=== PATIENT | female | born 1960 | race Caucasian/White ===

== ENCOUNTER 2017-04-24 12:56 | Emergency (ER) | payer MEDICAID ==
--- NOTE | 2017-04-24 13:07 | Emergency Department Record ---
History of Present Illness - General Chief complaint: Extremity Problem Stated complaint: LEGS KEEP GIVING OUT Time Seen by Provider: 04/24/17 13:02 Source: Patient, Family Mode of Arrival: Ambulatory Limitations: No limitations - History of Present Illness Initial comments: 56 yo female presents with left leg spasm that give out intermittently. She reports this problem goes back about 5 years but the last week it is happening with increasing frequency. She has had a history of sciatica in the past. In the past these episodes occur rarely. During the last week the episodes have been occurring more frequently. She has fallen twice. No injury. She is able to ambulate then an episode occurs. She has some chronic lumbar pain. She was seen at the [facility] this week. She was provided a knee immobilzer, cane, and PT referral to help her compensate with her difficulty walking. She continues to be unstable and has fallen. No swelling. No numbness. No incontinence. MD Complaint: Other -: Week(s) (1) Location: Left Radiation: Distal Quality: Aching Consistency: Intermittent Improves with: Rest Worsens with: Walking, Weight bearing Associated Symptoms: Denies other symptoms - Related Data Home Medications Medication Instructions Recorded Confirmed Last Taken Glyburide 1.25 mg PO DAILY 04/24/17 04/24/17 Unknown Insulin Glulisine [Apidra Solostar] 1 unit SQ ASDIR 04/24/17 04/24/17 Unknown Lisinopril 10 mg PO DAILY 04/24/17 04/24/17 Unknown Lovastatin 10 mg PO DAILY 04/24/17 04/24/17 Unknown Metformin HCl 2,500 mg PO DAILY 04/24/17 04/24/17 Unknown Risperidone [Risperdal] 0.5 mg PO QHS 04/24/17 04/24/17 Unknown Trazodone HCl 50 mg PO QHS 04/24/17 04/24/17 Unknown Allergies Allergy/AdvReac Type Severity Reaction Status Date / Time No Known Drug Allergies Allergy Verified 04/24/17 13:07 Review of Systems Constitutional: Reports: Weakness. Denies: Chills, Fever, Malaise Eyes: Denies: Eye discharge, Eye pain, Photophobia, Vision change ENT: Denies: Congestion, Throat pain Respiratory: Denies: Cough Cardiovascular: Denies: Chest pain, Syncope Endocrine: Denies: Fatigue Gastrointestinal: Denies: Abdominal pain, Diarrhea, Nausea, Vomiting Genitourinary: Denies: Dysuria, Incontinence, Retention, Urgency Musculoskeletal: Reports: Arthralgia, Back pain Skin: Denies: Bruising, Change in color, Rash Neurological: Reports: As per HPI, Abnormal gait, Tremors, Weakness. Denies: Confusion, Headache, Numbness, Tingling, Vertigo Psychiatric: Denies: Anxiety Hematological/Lymphatic: Denies: Blood Clots, Easy bleeding, Easy bruising, Swollen glands Physical Exam - General General Appearance: Alert, Oriented x3, Cooperative, No acute distress Limitations: No limitations - Head Head exam: Atraumatic, Normocephalic, Normal inspection - Eye Eye exam: Normal appearance. negative: Conjunctival injection, Scleral icterus - ENT ENT exam: Normal exam, Mucous membranes moist Ear exam: Normal external inspection Nasal Exam: Normal inspection Mouth exam: Normal external inspection - Neck Neck exam: Normal inspection. negative: Tenderness - Respiratory Respiratory exam: Normal lung sounds bilaterally. negative: Respiratory distress - Cardiovascular Cardiovascular Exam: Regular rate, Normal rhythm, Normal heart sounds Peripheral Pulses: 2+: Dorsalis Pedis (L) - GI/Abdominal GI/Abdominal exam: Soft. negative: Distended, Tenderness - Rectal Rectal exam: Deferred - exam: Deferred - Extremities Extremities exam: Normal inspection, Other (The patient able to over come gravity with left for 1-2 seconds, right is normal, ). negative: Calf tenderness, Full ROM, Normal capillary refill, Pedal edema, Tenderness - Back Back exam: Reports: Paraspinal tenderness, Tenderness (low lumbar). Denies: CVA tenderness (R), CVA tenderness (L) - Neurological Neurological exam: Abnormal gait (Ambulated independently with cane and brace), Alert, Oriented X3, Other (foot flexion and extnesion intact, foot sensation intact). negative: Altered, Motor sensory deficit, Reflexes normal (right patellar +2, left +1 patellar) - Psychiatric Psychiatric exam: negative: Agitated, Anxious - Skin Skin exam: Dry, Intact, Normal color, Warm Course - Reevaluation(s) Reevaluation #1: EMR reviewed 01/14/14 Lumbar performed for leg weakness, neuropathy: Degenerative changes noted at the L4-L5, L5-S1. Preserved vertebral heights. 04/24/17 13:04 I Explained to the patient that [facility] does not have MRI or neurology I believe this is most likely a lumbar radiculapathy and not a stroke I recommend evaluation at a hospital with proper resources She recommends [facility] I called the [facility] ED. I SW Dr Moscoso. He agrees with accepting the patient for transfer for evaluation The patient is stable for transfer by private car Disposition Disposition: Transfer Clinical Impression: Tremor, Left leg weakness Disposition: Acute Care Hospital Transfer Transfer To: [facility] Reason For Transfer: Left leg weakness Accepting Physician: Danis Time Discussed w/Accepting Physician: 13:41 Condition: (2) Stable Additional Instructions: Go directly to the [facility] ER for further evaluation. Forms: Patient Portal Access Time of Disposition: 13:29 Quality - Quality Measures Quality Measures: N/A - Blood Pressure Screening Does Patient Have Any of the Following: No Blood Pressure Classification: Hypertensive Reading Systolic Measurement: 148 Diastolic Measurement: 105 Screening for High Blood Pressure: < Pre-Hypertensive BP, F/U Documented > [ G8950] Pre-Hypertensive Follow-up Interventions: Referral to alternative/primary care provider.
== END 2017-04-24 13:45 | disposition short-term general hospital (02) ==
LOC: ER 12:56
DX: R25.1 Tremor, unspecified (principal); R29.898 Other symptoms and signs involving the musculoskeletal system; M54.5 Low back pain; R25.2 Cramp and spasm; R26.2 Difficulty in walking, not elsewhere classified
CPT/HCPCS: 99284

== ENCOUNTER 2017-04-28 17:01 | Observation (INO) | payer MEDICAID ==
[2017-04-28] MEDS ORDERED: SODIUM CHLORIDE 0.9% 500 ML IV ONE (17:19)
[2017-04-28] MEDS ORDERED: ONDANSETRON HCL IV 4 MG/2 ML VIAL IV ONE (17:19)
[2017-04-28] MEDS ORDERED: SUCRALFATE 1 G/10 ML UD PO ONE (17:20)
--- NOTE | 2017-04-28 17:20 | Emergency Department Record ---
History of Present Illness - General Chief Complaint: Abdominal Pain Stated Complaint: VOMITING, RT RIB PAIN AND BACK PAIN Time Seen by Provider: 04/28/17 17:13 Source: Patient Mode of Arrival: Ambulatory Limitations: No limitations - History of Present Illness Initial Comments: The patient is here due to RUQ AP for one day. The pain is a sharp cramping pain associated with nausea and vomiting. She has vomited 6 times in the last 24 hours. Additionally the patient is having R flank pain from the backside that intermittently radiates around to the front over the RUQ area. She states it feels like when she had GB problems but that has been removed. There is no reported lower AP, dysuria, fever, chills, CP, SOB, or ALISON. The patient was seen in the [facility] ER 4 days ago due to back pain and was discharged on oral steroids. MD Complaint: Abdominal pain Onset/Timin -: Days(s) Location: Epigastric, R Flank, RUQ, Other Radiation: R flank, Other Quality: Aching, Sharp Improves With: Nothing Worsens With: Nothing Associated Symptoms: Nausea, Vomiting - Related Data Patient : No Home Medications Medication Instructions Recorded Confirmed Last Taken Aspirin [Adult Low Dose Aspirin EC] 81 mg PO DAILY 04/28/17 04/28/17 04/27/17 Buspirone HCl [Buspar] 10 mg PO TID 04/28/17 04/28/17 04/28/17 Glimepiride [Amaryl] 8 mg PO DAILY 04/28/17 04/28/17 04/27/17 Hydrochlorothiazide 25 mg PO DAILY 04/28/17 04/28/17 04/27/17 Insulin Glargine,Hum.rec.anlog 100 unit SQ 04/28/17 Unknown [Basaglar Kwikpen U-100] Insulin Glulisine [Apidra Solostar] 1 unit SQ ASDIR 04/28/17 04/28/17 Unknown Lisinopril [Zestril] 1 tab PO DAILY 04/28/17 04/28/17 04/27/17 Lovastatin [Altoprev] 40 mg PO DAILY 04/28/17 04/28/17 04/27/17 Metformin HCl [Glucophage] 1,000 mg PO DAILY 04/28/17 04/28/17 04/27/17 Methocarbamol [Robaxin] 500 mg PO ASDIR 04/28/17 04/28/17 Unknown Metoprolol Tartrate [Lopressor] 50 mg PO BID 04/28/17 04/28/17 04/27/17 Naproxen [Naprosyn] 500 mg PO ASDIR 04/28/17 04/28/17 Unknown Nicotine 14Mg/24 Hour Patch 1 patch TD DAILY 04/28/17 04/28/17 Unknown [Nicotine 14Mg] Omeprazole [Prilosec] 20 mg PO DAILY 04/28/17 04/28/17 04/27/17 Prednisone [Prednisone 20Mg] 20 mg PO DAILY 04/28/17 04/28/17 04/27/17 Pregabalin [Lyrica] 200 mg PO ASDIR 04/28/17 04/28/17 04/27/17 Risperidone [Risperdal] 0.5 mg PO DAILY 04/28/17 04/28/17 04/27/17 Sertraline HCl [Zoloft] 50 mg PO DAILY 04/28/17 04/28/17 04/27/17 Sumatriptan Succinate [Imitrex] 100 mg PO ASDIR 04/28/17 04/28/17 04/28/17 Trazodone HCl [Desyrel] 50 mg PO QHS 04/28/17 04/28/17 04/27/17 Allergies Allergy/AdvReac Type Severity Reaction Status Date / Time No Known Drug Allergies Allergy Verified 04/28/17 17:14 Travel Screening - Travel/Exposure Within Last 30 Days Have you traveled within the last 30 days?: No - Travel/Exposure Within Last Year Have you traveled outside the [place] in the last year?: No - Additonal Travel Details Have you been exposed to anyone with a communicable illness?: No - Travel Symptoms Symptom Screening: None Review of Systems Constitutional: Denies: Chills, Fever Eyes: Denies: Eye discharge ENT: Denies: Congestion Respiratory: Denies: Cough, Dyspnea Past Medical History - SOCIAL HISTORY Smoking Status: Current every day smoker Alcohol Use: None Drug Use: Occasional Drug Use Detail:: Marijuana - RESPIRATORY Hx Respiratory Disorders: No - CARDIOVASCULAR Hx Cardio Disorders: Yes Hx Hypertension: Yes Comment:: high cholesterol - NEURO Hx Neuro Disorders: No - GI Hx GI Disorders: No - Hx Genitourinary Disorders: No - ENDOCRINE Hx Endocrine Disorders: Yes Hx Diabetes: Yes - MUSCULOSKELETAL Hx Musculoskeletal Disorders: No - PSYCH Hx Psych Problems: No - HEMATOLOGY/ONCOLOGY Hx Hematology/Oncology Disorders: No Family Medical History Any Significant Family History?: Yes Family Hx Comment (NOT TO BE USED IN PLACE OF ITEMS BELOW): grandpa-parkinsons Physical Exam - General General Appearance: Alert, Oriented x3, Cooperative, No acute distress - Head Head exam: Atraumatic, Normocephalic, Normal inspection - Eye Eye exam: Normal appearance, PERRL - ENT Throat exam: Normal inspection. negative: Tonsillar erythema, Tonsillar exudate - Neck Neck exam: Normal inspection, Full ROM. negative: Tenderness - Respiratory Respiratory exam: Normal lung sounds bilaterally. negative: Respiratory distress - Cardiovascular Cardiovascular Exam: Regular rate, Normal rhythm, Normal heart sounds - GI/Abdominal GI/Abdominal exam: Soft, Tenderness (There is significant RUQ tenderness to palpation which does reproduce the patient's pain.). negative: Distended, Rebound, Rigid - Extremities Extremities exam: Normal inspection, Full ROM, Normal capillary refill. negative: Tenderness Image of Full Body: 1 - Area of pain and tenderness. - Neurological Neurological exam: Alert. negative: Motor sensory deficit Course Vital Signs 04/28/17 17:06 Temperature 98.0 F Pulse Rate 88 Respiratory 18 Rate Blood Pressure 134/91 Pulse Ox 96 - Reevaluation(s) Reevaluation #1: The patient is still in pain and the carafate did not improve her symptoms. I did discuss the lab results with her and the diagnosis of Pancreatitis. She states she has had that in the past also and did need to stay in the hospital for it. 04/28/17 18:13 Reevaluation #2: The patient is doing much better at this time after the Dilaudid and does agree to the admission. I also did discuss the case with Dr. Tapia and he does accept her admission. 04/28/17 18:34 Medical Decision Making - Data Complexity MDM Data: Labs Ordered and/or Reviewed, X-Ray Ordered and/or Reviewed - Lab Data Result diagrams: 04/29/17 06:05 04/28/17 17:29 - Radiology Data Radiology results: Report reviewed (Abd CT: Mild Pancreatitis.) Disposition Disposition: Admit Clinical Impression: Pancreatitis, acute Qualifiers: Pancreatitis type: unspecified pancreatitis type Acute pancreatitis complication: unspecified Qualified Code(s): K85.90 - Acute pancreatitis without necrosis or infection, unspecified Disposition: Still a Patient at [facility] Decision to Admit: Admit from ER Decision to Admit Date: 04/28/17 Decision to Admit Time: 18:35 Accepting Physician: Matteo Time Discussed w/Accepting Physician: 18:35 Condition: (2) Stable Time of Disposition: 18:35 Quality - Quality Measures Quality Measures: N/A - Blood Pressure Screening View Details: Yes Does Patient Have Any of the Following: No Blood Pressure Classification: Pre-Hypertensive BP Reading Systolic Measurement: 133 Diastolic Measurement: 81 Screening for High Blood Pressure: < Pre-Hypertensive BP, F/U Documented > [ G8950] Pre-Hypertensive Follow-up Interventions: Referral to alternative/primary care provider.
[2017-04-28 17:34] LABS: BASO % 0.2 % (0-6); EOS % 0.7 % (0-6); GRAN % 71.5 % (47-80); HEMATOCRIT 44.6 % (35.0-47.0); HEMOGLOBIN 15.2 gm/dl (11.6-16.0); LYMPH % 20.5 % (16-45); MEAN CELL VOLUME 81.8 fl (81-97); MEAN CORPUSCULAR HGB CONC 34.1 g/dl (32-36); MEAN PLATELET VOLUME 9.5 fl (7.4-10.4); MONO % 7.1 % (0-9); PLATELET COUNT 385 K/uL (130-400); RED BLOOD COUNT 5.45 M/uL (3.80-5.40); RED CELL DISTRIBUTION WIDTH 13.6 % (11.5-14.5); WHITE BLOOD COUNT W/O DIFF 16.3 K/uL (4.2-12.2)
[2017-04-28 17:35] LABS: MEAN CORPUSCULAR HEMOGLOBIN 27.8 pg (27-33)
[2017-04-28 17:48] LABS: BLOOD UREA NITROGEN 11 mg/dL (6-20)
[2017-04-28 17:49] LABS: CREATININE 0.8 mg/dL (0.5-0.9); EST GLOMERULAR FILTRATION RATE > 60 mL/min; TOTAL PROTEIN 7.5 g/dL (6.6-8.7)
[2017-04-28 17:51] LABS: GLUCOSE,RANDOM 233 mg/dL (74-109)
[2017-04-28 17:54] LABS: ALBUMIN 4.2 g/dL (4.0-5.0); ALKALINE PHOSPHATASE 90 U/L (35-104); ALT/SGPT 11 U/L (<33); AST/SGOT 9 U/L (10.0-35.0); LIPASE 295 U/L (13-60)
[2017-04-28 17:55] LABS: BILIRUBIN,DIRECT < 0.2 mg/dL (0-0.3)
[2017-04-28] MEDS ORDERED: 0.9 % SODIUM CHLORIDE 1,000 ML BAG IV ONE (18:01)
[2017-04-28] MEDS ORDERED: HYDROMORPHONE HCL 1 MG/ML SYRINGE IVP ONE (18:06)
[2017-04-28 18:15] LABS: URINE APPEARANCE CLEAR; URINE BILIRUBIN NEGATIVE (NEGATIVE); URINE BLOOD SMALL (NEGATIVE); URINE COLOR YELLOW; URINE GLUCOSE (UA) NEGATIVE (NEGATIVE); URINE KETONE NEGATIVE (NEGATIVE); URINE LEUKOCYTE ESTERASE NEGATIVE (NEGATIVE); URINE NITRITE NEGATIVE (NEGATIVE); URINE PROTEIN NEGATIVE (NEGATIVE); URINE UROBILINOGEN 0.2 E.U./dL (0.20 - 1.00)
[2017-04-28 18:23] LABS: URINE BACTERIA 1+; URINE WBC 0 - 2 (0-2/hpf)
[2017-04-28] MEDS ORDERED: HYDROMORPHONE HCL 1 MG/ML SYRINGE IM PRN (19:38)
[2017-04-28] MEDS ORDERED: INSULIN GLULISINE 1 UNIT SQ SCH (19:38)
[2017-04-28] MEDS: PANTOPRAZOLE SODIUM IV 40 MG VIAL IV SCH (20:36)
[2017-04-28] MEDS: 0.9 % SODIUM CHLORIDE 1000ML 1,000 ML IV PRN (20:40)
[2017-04-28] MEDS ORDERED: GLIMEPIRIDE 2 MG TABLET PO SCH (21:00)
[2017-04-28] MEDS: METOPROLOL TART 50 MG TABLET PO SCH (21:35)
[2017-04-28] MEDS: BUSPIRONE 5 MG TABLET PO SCH ×2 (21:35→21:36)
[2017-04-28] MEDS: HYDROMORPHONE HCL 2 MG/ML VIAL IVP PRN (23:56)
[2017-04-29] MEDS: TRAZODONE 50 MG TABLET PO SCH ×2 (00:35→21:26)
[2017-04-29] MEDS: ONDANSETRON HCL IV 4 MG/2 ML VIAL IVP PRN ×2 (03:07→16:58)
[2017-04-29] MEDS: 0.9 % SODIUM CHLORIDE 1000ML 1,000 ML IV PRN ×3 (03:13→20:30)
[2017-04-29] MEDS: HYDROMORPHONE HCL 2 MG/ML VIAL IVP PRN ×2 (05:25→09:18)
[2017-04-29 06:32] LABS: BASO % 0.3 % (0-6); EOS % 1.2 % (0-6); GRAN % 62.5 % (47-80); HEMATOCRIT 41.4 % (35.0-47.0); HEMOGLOBIN 13.4 gm/dl (11.6-16.0); LYMPH % 28.1 % (16-45); MEAN CELL VOLUME 84.5 fl (81-97); MEAN CORPUSCULAR HEMOGLOBIN 27.3 pg (27-33); MEAN CORPUSCULAR HGB CONC 32.4 g/dl (32-36); MEAN PLATELET VOLUME 9.8 fl (7.4-10.4); MONO % 7.9 % (0-9); PLATELET COUNT 335 K/uL (130-400); RED CELL DISTRIBUTION WIDTH 13.8 % (11.5-14.5); WHITE BLOOD COUNT W/O DIFF 11.3 K/uL (4.2-12.2)
--- NOTE | 2017-04-29 07:24 | CT SCAN REPORT ---
EXAM: CT SCAN OF THE ABDOMEN AND PELVIS HISTORY: PATIENT HAS GENERALIZED UPPER ABDOMINAL PAIN. TECHNIQUE: Serial axial CT scan of the abdomen and pelvis was performed at 3.75 mm intervals from the dome of the diaphragm down to the pubic symphysis without the use of intravenous or oral contrast. No comparison CT's are available. FINDINGS: The lung windows of the lung bases demonstrate no CT evidence of a focal infiltrate or pleural effusion. The visualized heart size and contour is within normal limits. There is mild thickening of the distal gastroesophageal wall suggesting mild esophagitis. This finding may the result of gastroesophageal reflux. Clinical correlation is recommended. The liver demonstrates diffuse fatty infiltration. The size and contour of the liver is within normal limits. No suspicious hepatic lesions are identified. The spleen and adrenal glands appear unremarkable. There is moderate peripancreatic fat stranding identified. This finding suggests mild acute pancreatitis. Clinical correlation is recommended. Cholecystectomy clips are identified within the right upper quadrant of the abdomen. There is no CT evidence of hydronephrosis or hydroureter. No renal or ureteral calculi are noted. There is an exophytic simple 3.9 cm cyst from the superior pole of the right kidney. The contour and caliber of the noncontrasted abdominal aorta is within normal limits. There is no CT evidence of retroperitoneal, pelvic, or inguinal lymphadenopathy. The bowel gas pattern is nonspecific and nonobstructive. There is no CT evidence of free intraperitoneal fluid or free intraperitoneal air. The urinary bladder is unremarkable. The uterus is absent. Bone windows demonstrate no CT evidence of a fracture or dislocation of the visualized osseous structures. Of note is that the patient has a lobulated appearance of both kidneys. I suspect this finding likely represents persistent lobulation of the kidneys. IMPRESSION: 1. FINDINGS CONSISTENT WITH MILD ACUTE PANCREATITIS. CLINICAL CORRELATION IS RECOMMENDED. 2. DIFFUSE HEPATIC STEATOSIS. 3. MILD THICKENING OF THE DISTAL ESOPHAGUS AND GASTROESOPHAGEAL JUNCTION WALL. THESE FINDINGS MAY BE THE RESULT OF GASTROESOPHAGEAL REFLUX. CLINICAL CORRELATION IS RECOMMENDED. JOB NUMBER: [id number] MTDD
[2017-04-29 07:30] LABS: BLOOD UREA NITROGEN 9 mg/dL (6-20); CREATININE 0.7 mg/dL (0.5-0.9); EST GLOMERULAR FILTRATION RATE > 60 mL/min; GLUCOSE,RANDOM 148 mg/dL (74-109); LIPASE 67 U/L (13-60)
[2017-04-29] MEDS: NICOTINE14 MG/24 HOUR PATCH TD SCH (09:14)
[2017-04-29] MEDS: PANTOPRAZOLE SODIUM IV 40 MG VIAL IV SCH (09:14)
[2017-04-29] MEDS: BUSPIRONE 5 MG TABLET PO SCH (09:16)
[2017-04-29] MEDS: METOPROLOL TART 50 MG TABLET PO SCH (09:17)
[2017-04-29] MEDS: LISINOPRIL 20 MG TABLET PO SCH (09:17)
[2017-04-29] MEDS: PREGABALIN (LYRICA) 100MG CAPSULE PO SCH ×2 (09:17→21:27)
[2017-04-29] MEDS: SERTRALINE HCL 50 MG TABLET PO SCH (09:18)
--- NOTE | 2017-04-29 09:41 | History & Physical ---
History of Present Illness - Date of Service Date of Service for History & Physical: 04/29/17 - History of Present Illness Admitting Diagnosis: 1. Acute Pancreatitis. History of Present Illness: Mrs. Mustafa is a 56 y/o female who comes in with a 2 day history of nausea, vomiting and abdominal pain. The patient says that she tried taking her medication on Tuesday morning like she usually does but was unable to keep them down. She then tried eating a small amount of food later that afternoon but was not able to keep that down either. Yesterday she began having pain over the right abdomen with radiation to her back which she rates as 7/10 in severity and sharp in quality. The patient has had cholecystectomy but no other GI surgeries. The patient denies any recent change in medications with the exception of a 5 day course of prednisone prescribed at [facility] for severe back pain. She is a diabetic and reports compliance with medications but has not been able to take her Glimiperide or basal insulin as she has not been eating. She denies sick contacts, fever, chills, change in bowel habits, weight loss or change in diet. On arrival to [facility] ED the patient was noted to have mild pancreatitis on abdominal CT and elevation in lipase. She was admitted for bowel rest and pain management. Travel Screening - Travel/Exposure Within Last 30 Days Have you traveled within the last 30 days?: No - Travel/Exposure Within Last Year Have you traveled outside the [place] in the last year?: No - Additonal Travel Details Have you been exposed to anyone with a communicable illness?: No - Travel Symptoms Symptom Screening: None Review of Systems Constitutional: Denies: Chills, Fever Eyes: Denies: Eye discharge ENT: Denies: Congestion Respiratory: Denies: Cough, Dyspnea Cardiovascular: Denies: Arrhythmia, Chest pain, Dyspnea on exertion, Edema, Murmurs Gastrointestinal: Reports: Abdominal pain, Nausea, Vomiting Neurological: Reports: Tingling, Tremors (lower ext bilaterally) Psychiatric: Reports: Anxiety, Depression Past Medical History - SOCIAL HISTORY Smoking Status: Current every day smoker Alcohol Use: None Drug Use: Occasional Drug Use Detail:: Marijuana - RESPIRATORY Hx Respiratory Disorders: No - CARDIOVASCULAR Hx Cardio Disorders: Yes Hx Hypertension: Yes Comment:: high cholesterol - NEURO Hx Neuro Disorders: No - GI Hx GI Disorders: No - Hx Genitourinary Disorders: No - ENDOCRINE Hx Endocrine Disorders: Yes Hx Diabetes: Yes - MUSCULOSKELETAL Hx Musculoskeletal Disorders: Yes - PSYCH Hx Anxiety: Yes Hx Depression: Yes - HEMATOLOGY/ONCOLOGY Hx Hematology/Oncology Disorders: No Family Medical History Any Significant Family History?: Yes Family Hx Comment (NOT TO BE USED IN PLACE OF ITEMS BELOW): grandpa-parkinsons H&P Meds/Allergies - Allergies Allergies: Allergies Allergy/AdvReac Type Severity Reaction Status Date / Time No Known Drug Allergies Allergy Verified 04/28/17 17:14 - Home Medications Home Medications Medication Instructions Recorded Confirmed Last Taken Aspirin [Adult Low Dose Aspirin EC] 81 mg PO DAILY 04/28/17 04/28/17 04/27/17 Buspirone HCl [Buspar] 10 mg PO TID PRN 04/28/17 04/28/17 04/28/17 Glimepiride [Amaryl] 8 mg PO DAILYWM 04/28/17 04/29/17 04/27/17 Insulin Glargine,Hum.rec.anlog 68 unit SQ QHS 04/28/17 04/29/17 Unknown [Basaglar Kwikpen U-100] Insulin Glulisine [Apidra Solostar] 1 unit SQ ASDIR 04/28/17 04/28/17 Unknown Lisinopril [Zestril] 40 mg PO DAILY 04/28/17 04/29/17 04/27/17 Lovastatin [Altoprev] 40 mg PO QHS 04/28/17 04/29/17 04/27/17 Metformin HCl [Glucophage] 1,500 mg PO DAILY 04/28/17 04/29/17 04/27/17 Methocarbamol [Robaxin] 500 mg PO BID PRN 04/28/17 04/29/17 Unknown Metoprolol Tartrate [Lopressor] 50 mg PO BID 04/28/17 04/28/17 04/27/17 Naproxen [Naprosyn] 500 mg PO BID PRN 04/28/17 04/29/17 Unknown Nicotine 14Mg/24 Hour Patch 1 patch TD DAILY 04/28/17 04/28/17 Unknown [Nicotine 14Mg] Omeprazole [Prilosec] 20 mg PO DAILYAC 04/28/17 04/29/17 04/27/17 Prednisone [Prednisone 20Mg] 20 mg PO DAILY 04/28/17 04/28/17 04/27/17 Pregabalin [Lyrica] 200 mg PO BID 04/28/17 04/29/17 04/27/17 Risperidone [Risperdal] 0.5 mg PO QHS 04/28/17 04/29/17 04/27/17 Sertraline HCl [Zoloft] 50 mg PO DAILY 04/28/17 04/28/17 04/27/17 Sumatriptan Succinate [Imitrex] 100 mg PO ASDIR PRN 04/28/17 04/28/17 04/28/17 Trazodone HCl [Desyrel] 50 mg PO QHS 04/28/17 04/28/17 04/27/17 Hydrochlorothiazide 50 mg PO DAILY 04/29/17 04/29/17 Unknown Metformin HCl 1,000 mg PO QHS 04/29/17 04/29/17 Unknown - Active Medications Active Medications: Current Medications Buspirone HCl (Buspar) 10 mg PO TID PRN PRN Reason: ANXIETY Hydromorphone HCl (Dilaudid) 1 mg IVP Q4H PRN PRN Reason: Pain - General Sodium Chloride () 1,000 mls @ 125 mls/hr IV .Q8H PRN PRN Reason: LARGE VOLUME IV Last Admin: 04/29/17 03:13 Dose: 125 mls/hr Insulin Detemir (Levemir Flextouch) 20 unit SQ QHS [facility] Lisinopril (Zestril) 40 mg PO DAILY [facility] Last Admin: 04/29/17 09:17 Dose: 40 mg Metoprolol Tartrate (Lopressor) 25 mg PO BID [facility] Nicotine (Nicotine 14mg) 1 patch TD DAILY [facility] Last Admin: 04/29/17 09:14 Dose: 1 patch Ondansetron HCl (Zofran) 4 mg IVP Q4H PRN PRN Reason: NAUSEA Last Admin: 04/29/17 03:07 Dose: 4 mg Pantoprazole Sodium (Protonix Iv) 40 mg IV DAILY [facility] Last Admin: 04/29/17 09:14 Dose: 40 mg Pregabalin (Lyrica) 200 mg PO BID [facility] Last Admin: 04/29/17 09:17 Dose: 200 mg Risperidone (Risperdal) 0.5 mg PO QHS [facility] Sertraline HCl (Zoloft) 50 mg PO DAILY [facility] Last Admin: 04/29/17 09:18 Dose: 50 mg Trazodone HCl (Desyrel) 50 mg PO QHS [facility] Last Admin: 04/29/17 00:35 Dose: Not Given Physical Exam - Vital Signs Vital Signs: Vital Signs - Last 24 Hrs Temp Pulse Resp BP Pulse Ox 04/29/17 07:56 98.6 F 75 16 112/72 92 L 04/29/17 04:01 98.1 F 77 16 141/83 94 L 04/28/17 23:38 98 F 94 H 18 148/87 77 L 04/28/17 20:11 72 18 04/28/17 19:15 99 F 72 18 130/74 94 L - General General Appearance: Alert, Oriented x3, Cooperative, No acute distress Limitations: No limitations - Head Head exam: Atraumatic, Normocephalic, Normal inspection - Eye Eye exam: Normal appearance, PERRL - ENT ENT exam: Normal exam, Mucous membranes moist, Normal external ear exam, Normal orophraynx, TM's normal bilaterally Nasal Exam: Normal inspection. negative: Discharge, Sinus tenderness Mouth exam: Normal external inspection, Tongue normal, Other Teeth exam: Other (edentulous) Throat exam: Normal inspection. negative: Tonsillar erythema, Tonsillar exudate - Neck Neck exam: Normal inspection, Full ROM. negative: Tenderness - Respiratory Respiratory exam: Normal lung sounds bilaterally. negative: Respiratory distress - Cardiovascular Cardiovascular Exam: Regular rate, Normal rhythm, Normal heart sounds Peripheral Pulses: 2+: Radial (R), Radial (L), Dorsalis Pedis (R), Dorsalis Pedis (L) - GI/Abdominal GI/Abdominal exam: Soft, Normal bowel sounds, Tenderness (There is significant RUQ tenderness to palpation which does reproduce the patient's pain.). negative : Bruit, Distended, Guarding, Rebound, Rigid - exam: Deferred - Extremities Extremities exam: Normal inspection, Full ROM, Normal capillary refill. negative: Tenderness - Neurological Neurological exam: Alert, CN II-XII intact. negative: Motor sensory deficit - Psychiatric Psychiatric exam: Normal affect, Normal mood - Skin Skin exam: Dry, Intact, Normal color, Warm Results - Labs Result Diagrams: 04/29/17 06:05 04/29/17 06:05 Labs Last 24 Hours: Laboratory Results - last 24 hr 04/29/17 04/29/17 06:05 06:05 WBC 11.3 RBC 4.90 Hgb 13.4 Hct 41.4 MCV 84.5 MCH 27.3 MCHC 32.4 RDW 13.8 Plt Count 335 MPV 9.8 Gran % 62.5 Lymphocytes % 28.1 Monocytes % 7.9 Eosinophils % 1.2 Basophils % 0.3 Sodium 142 Potassium 4.1 Chloride 105 Carbon Dioxide 27.0 Anion Gap 10.0 BUN 9 Creatinine 0.7 Estimated GFR > 60 Random Glucose 148 H Calcium 8.4 L Lipase 67 H VTE H&P Assessment - Risk for VTE Risk for VTE: Yes Risk Level: Moderate Risk Assessment Date: 04/29/17 Risk Assessment Time: 10:27 VTE Orders Placed or Will Be Placed: Yes Plan - Inpatient Certification Inpatient Certification: Admit to inpatient care: Based on my medical assessment, after consideration of patient's risk factors (age, co-morbidities and patient presenting symptoms and acuity), I expect that this patient will remain in the hospital greater than or equal to two midnights and that the services needed warrant inpatient care because: Patient Risk Factors: Acute pancreatitis Estimated length of stay: 3 days The patient may reasonably be expected to be discharged or transferred to a hospital within 96 hours after admission to [facility]. I certify that my determination is in accordance with my understanding of Medicare requirements for reasonable and necessary inpatient services. - Detailed Diagnosis and Plan (1) Pancreatitis, acute Current Visit: Yes Status: Acute Qualifiers: Pancreatitis type: unspecified pancreatitis type Acute pancreatitis complication: unspecified Qualified Code(s): K85.90 - Acute pancreatitis without necrosis or infection, unspecified Base Code: K85.90 - ACUTE PANCREATITIS WITHOUT NECROSIS OR INFECTION, UNSP Comment: - CT abdomen indicative of mild pancreatitis and hepatic steatosis. - Labs: transaminases WNL, Lipase 295 --> 67, repeeat labs in am. - cont Nacl 0.9% @ 125mL/hr, Dilaudid 1mg IV Q4H PRN, Zofran 4mg Q4H PRN, Protonix 40mg IV Q24H - NPO, with advance to clear liquids as tolerated (2) Diabetes mellitus type 2, controlled Current Visit: Yes Status: Acute Qualifiers: Diabetes mellitus complication status: without complication Diabetes mellitus residential insulin use: with exterminator helper use Qualified Code(s): E11.9 - Type 2 diabetes mellitus without complications; Z79.4 - correction (current) use of insulin; Z79.4 - exterminator helper (current) use of insulin; Z79.4 - exterminator helper ( current) use of insulin; Z79.4 - correction (current) use of insulin Base Code: E11.9 - TYPE 2 DIABETES MELLITUS WITHOUT COMPLICATIONS Comment: - CBG 233 --> 148, inpatient goal 140-180 - hold home PO meds: Metformin 1500, Glimperide and Apidra 1 unit ASDIR, Basaglar 68 units QHS - reduced dose of basal insulin to Levemir 20 units QHS while pt NPO, - accuchecks BID, with TIDAC once pt able to tolerate diet. Ordered Hba1c - cont Nacl 0.9% @ 125mL/hr, ASA 81, Lovastatin 40mg (3) Hypertension Current Visit: Yes Status: Acute Base Code: I10 - ESSENTIAL (PRIMARY) HYPERTENSION Comment: - BP 112/72 - on Lopressor 50mg BID, Lisinopril 40mg, HCTZ 25mg at home. - changed to Lopressor 25mg BID with holding parameters. Cont to hold HCTZ, resume Lisinopril 40mg (4) Tremor Current Visit: No Status: Acute Base Code: R25.1 - TREMOR, UNSPECIFIED Comment: - resume Robaxan 500mg (5) Psychiatric disorder Current Visit: Yes Status: Acute Base Code: F99 - MENTAL DISORDER, NOT OTHERWISE SPECIFIED Comment: - resuming Zoloft, Desyrel , Buspar as per home dosing. (6) DVT prophylaxis Current Visit: Yes Status: Acute Base Code: [id number] - Comment: - Lovenox 40mg QD (7) Full code status Plan: FULL CODE Current Visit: Yes Status: Acute Base Code: Z78.9 - OTHER SPECIFIED HEALTH STATUS - Disposition NPO, pain control for now. Advance diet as tolerated. Likely d/c on Tuesday.
[2017-04-29] MEDS ORDERED: BUSPIRONE 5 MG TABLET PO PRN (09:45)
[2017-04-29] MEDS: METOPROLOL TART 25 MG TABLET PO SCH ×2 (12:05→21:32)
[2017-04-29] MEDS ORDERED: SUMATRIPTAN 6 MG/0.5 ML VIAL SQ ONE (16:07)
[2017-04-29] MEDS: HYDROMORPHONE HCL 1 MG/ML CPJ IVP PRN (17:00)
[2017-04-29] MEDS ORDERED: LEVEMIR FLEXTOUCH 100 UNIT/ML INSULIN PEN SQ SCH (22:00)
[2017-04-29] MEDS ORDERED: RISPERIDONE 0.25 MG TABLET PO SCH (22:00)
[2017-04-30] MEDS: HYDROMORPHONE HCL 1 MG/ML CPJ IVP PRN (01:09)
[2017-04-30] MEDS: 0.9 % SODIUM CHLORIDE 1000ML 1,000 ML IV PRN (04:59)
[2017-04-30 06:11] LABS: BASO % 0.6 % (0-6); GRAN % 56.6 % (47-80); HEMATOCRIT 41.4 % (35.0-47.0); HEMOGLOBIN 13.9 gm/dl (11.6-16.0); LYMPH % 32.8 % (16-45); MEAN CELL VOLUME 84.3 fl (81-97); MEAN CORPUSCULAR HEMOGLOBIN 28.3 pg (27-33); MEAN CORPUSCULAR HGB CONC 33.6 g/dl (32-36); MEAN PLATELET VOLUME 9.7 fl (7.4-10.4); PLATELET COUNT 294 K/uL (130-400); RED BLOOD COUNT 4.91 M/uL (3.80-5.40); RED CELL DISTRIBUTION WIDTH 13.6 % (11.5-14.5); WHITE BLOOD COUNT W/O DIFF 9.6 K/uL (4.2-12.2)
[2017-04-30 06:28] LABS: BLOOD UREA NITROGEN 8 mg/dL (6-20); CREATININE 0.8 mg/dL (0.5-0.9); EST GLOMERULAR FILTRATION RATE > 60 mL/min; GLUCOSE,RANDOM 114 mg/dL (74-109)
[2017-04-30] MEDS: NICOTINE14 MG/24 HOUR PATCH TD SCH (09:45)
[2017-04-30] MEDS: PANTOPRAZOLE SODIUM IV 40 MG VIAL IV SCH (09:45)
[2017-04-30] MEDS: PREGABALIN (LYRICA) 100MG CAPSULE PO SCH (09:46)
[2017-04-30] MEDS: METOPROLOL TART 25 MG TABLET PO SCH (09:47)
[2017-04-30] MEDS: LISINOPRIL 20 MG TABLET PO SCH (09:47)
[2017-04-30] MEDS: ONDANSETRON HCL IV 4 MG/2 ML VIAL IVP PRN (09:49)
[2017-04-30] MEDS ORDERED: ENOXAPARIN 40 MG/0.4 ML SYR SC SCH (10:00)
[2017-04-30] MEDS: SERTRALINE HCL 50 MG TABLET PO SCH (10:58)
--- NOTE | 2017-04-30 13:53 | Discharge Summary ---
Providers Discharge Summary Date: 04/30/17 Date of admission: 04/28/17 19:11 Attending physician: Andrea Felipe Primary care physician: BECKA ESCUDERO MD Physical Exam - Vital Signs Vital Signs: Vital Signs - Last 24 Hrs Temp Pulse Resp BP Pulse Ox 04/30/17 13:38 99.6 F 72 18 131/71 94 L 04/30/17 05:40 98.4 F 81 16 129/80 91 L 04/29/17 20:55 70 16 04/29/17 20:00 98.7 F 70 16 126/70 96 04/29/17 16:00 100.2 F H 75 18 132/64 90 L - General General Appearance: Alert, Oriented x3, Cooperative, No acute distress Limitations: No limitations - Head Head exam: Atraumatic, Normocephalic, Normal inspection - Eye Eye exam: Normal appearance, PERRL - ENT ENT exam: Normal exam, Mucous membranes moist, Normal external ear exam, Normal orophraynx, TM's normal bilaterally Nasal Exam: Normal inspection. negative: Discharge, Sinus tenderness Mouth exam: Normal external inspection, Tongue normal, Other Teeth exam: Other (edentulous) Throat exam: Normal inspection. negative: Tonsillar erythema, Tonsillar exudate - Neck Neck exam: Normal inspection, Full ROM. negative: Tenderness - Respiratory Respiratory exam: Normal lung sounds bilaterally. negative: Respiratory distress - Cardiovascular Cardiovascular Exam: Regular rate, Normal rhythm, Normal heart sounds Peripheral Pulses: 2+: Radial (R), Radial (L), Dorsalis Pedis (R), Dorsalis Pedis (L) - GI/Abdominal GI/Abdominal exam: Soft, Normal bowel sounds. negative: Bruit, Distended, Guarding, Rebound, Rigid - exam: Deferred - Extremities Extremities exam: Normal inspection, Full ROM, Normal capillary refill. negative: Tenderness - Neurological Neurological exam: Alert, CN II-XII intact. negative: Motor sensory deficit - Psychiatric Psychiatric exam: Normal affect, Normal mood - Skin Skin exam: Dry, Intact, Normal color, Warm Hospitalization - Hospitalization Admission Diagnosis: 1. Acute Pancreatitis. - Problem List/Discharge Diagnosis (1) Pancreatitis, acute Current Visit: Yes Status: Acute Discharge Diagnosis: Pancreatitis type: unspecified pancreatitis type Acute pancreatitis complication: unspecified Qualified Code(s): K85.90 - Acute pancreatitis without necrosis or infection, unspecified Base Code: K85.90 - ACUTE PANCREATITIS WITHOUT NECROSIS OR INFECTION, UNSP Comment: - CT abdomen indicative of mild pancreatitis and hepatic steatosis. - Labs: transaminases WNL, Lipase 295 --> 67, repeeat labs in am. - cont Nacl 0.9% @ 125mL/hr, Dilaudid 1mg IV Q4H PRN, Zofran 4mg Q4H PRN, Protonix 40mg IV Q24H - NPO, with advance to clear liquids as tolerated (2) Diabetes mellitus type 2, controlled Current Visit: Yes Status: Acute Discharge Diagnosis: Diabetes mellitus complication status: without complication Diabetes mellitus termite renewal inspector insulin use: with termite renewal inspector use Qualified Code(s): E11.9 - Type 2 diabetes mellitus without complications; Z79.4 - intermediate project manager (current) use of insulin; Z79.4 - intermediate (current) use of insulin; Z79.4 - intermediate ( current) use of insulin; Z79.4 - intermediate (current) use of insulin Base Code: E11.9 - TYPE 2 DIABETES MELLITUS WITHOUT COMPLICATIONS Comment: - CBG 233 --> 148, inpatient goal 140-180 - hold home PO meds: Metformin 1500, Glimperide and Apidra 1 unit ASDIR, Basaglar 68 units QHS - reduced dose of basal insulin to Levemir 20 units QHS while pt NPO, - accuchecks BID, with TIDAC once pt able to tolerate diet. Ordered Hba1c - cont Nacl 0.9% @ 125mL/hr, ASA 81, Lovastatin 40mg (3) Hypertension Current Visit: Yes Status: Acute Base Code: I10 - ESSENTIAL (PRIMARY) HYPERTENSION Comment: - BP 112/72 - on Lopressor 50mg BID, Lisinopril 40mg, HCTZ 25mg at home. - changed to Lopressor 25mg BID with holding parameters. Cont to hold HCTZ, resume Lisinopril 40mg (4) Tremor Current Visit: No Status: Acute Base Code: R25.1 - TREMOR, UNSPECIFIED Comment: - resume Robaxan 500mg (5) Psychiatric disorder Current Visit: Yes Status: Acute Base Code: F99 - MENTAL DISORDER, NOT OTHERWISE SPECIFIED Comment: - resuming Zoloft, Desyrel , Buspar as per home dosing. (6) DVT prophylaxis Current Visit: Yes Status: Acute Base Code: [id number] - Comment: - Lovenox 40mg QD (7) Full code status Current Visit: Yes Status: Acute Base Code: Z78.9 - OTHER SPECIFIED HEALTH STATUS - Disposition NPO, pain control for now. Advance diet as tolerated. Likely d/c on Tuesday. - Hospitalization Course Hospital Course: Mrs. Mustafa is a 56 y/o female who comes in with a 2 day history of nausea, vomiting and abdominal pain. The patient says that she tried taking her medication on Tuesday morning like she usually does but was unable to keep them down. She then tried eating a small amount of food later that afternoon but was not able to keep that down either. Yesterday she began having pain over the right abdomen with radiation to her back which she rates as 7/10 in severity and sharp in quality. The patient has had cholecystectomy but no other GI surgeries. The patient denies any recent change in medications with the exception of a 5 day course of prednisone prescribed at [facility] for severe back pain. She is a diabetic and reports compliance with medications but has not been able to take her Glimiperide or basal insulin as she has not been eating. She denies sick contacts, fever, chills, change in bowel habits, weight loss or change in diet. On arrival to [facility] ED the patient was noted to have mild pancreatitis on abdominal CT and elevation in lipase. She was admitted for bowel rest and pain management. Basal insulin dosing was initiated at less than 50% of regular required dosing while the patient remained NPO. 04/30 - patient states that she feels much better and has not had any nausea and vomiting throughout the evening. Her diet was advanced first to a clear liquid diet and then to soft diet. She was able to tolerate with minimal discomfort. On assessment prior to discharge the patient has no new complaint and is stable for discharge. Abnormal Labs: Abnormal Lab Results 04/29/17 04/29/17 04/29/17 Range/Units 06:05 09:45 17:00 Carbon Dioxide (22-29) mmol/L POC Glucose 127 H 131 H (70-110) mg/dL Random Glucose 148 H (74-109) mg/dL Hemoglobin A1c (4.0-6.00) % Calcium 8.4 L (8.6-10.0) mg/dL Lipase 67 H (13-60) U/L 04/29/17 04/30/17 04/30/17 Range/Units 21:44 05:50 05:50 Carbon Dioxide 18.0 L (22-29) mmol/L POC Glucose 116 H (70-110) mg/dL Random Glucose 114 H (74-109) mg/dL Hemoglobin A1c 8.10 H (4.0-6.00) % Calcium 8.5 L (8.6-10.0) mg/dL Lipase (13-60) U/L 04/30/17 04/30/17 Range/Units 08:03 11:48 Carbon Dioxide (22-29) mmol/L POC Glucose 117 H 207 H (70-110) mg/dL Random Glucose (74-109) mg/dL Hemoglobin A1c (4.0-6.00) % Calcium (8.6-10.0) mg/dL Lipase (13-60) U/L Condition at Discharge: (2) Stable Discharge Medications - Discharge Medications Prescriptions: Acetaminophen [Tylenol Extra Strength] 500 mg PO Q4HR PRN #14 tablet PRN Reason: Abdominal Pain Ondansetron HCl [Zofran] 4 mg PO Q4HR PRN #14 tablet PRN Reason: Nausea Metoprolol Tartrate [Lopressor] 25 mg PO BID #60 tab Home Medications: Ambulatory Orders Aspirin [Adult Low Dose Aspirin EC] 81 mg PO DAILY 04/28/17 [Last Taken 04/27/17 ] Buspirone HCl [Buspar] 10 mg PO TID PRN 04/28/17 [Last Taken 04/28/17] Glimepiride [Amaryl] 8 mg PO DAILYWM 04/28/17 [Last Taken 04/27/17] Insulin Glargine,Hum.rec.anlog [Basaglar Kwikpen U-100] 68 unit SQ QHS 04/28/17 [Last Taken Unknown] Insulin Glulisine [Apidra Solostar] 1 unit SQ ASDIR 04/28/17 [Last Taken Unknown ] Lisinopril [Zestril] 40 mg PO DAILY 04/28/17 [Last Taken 04/27/17] Lovastatin [Altoprev] 40 mg PO QHS 04/28/17 [Last Taken 04/27/17] Metformin HCl [Glucophage] 1,500 mg PO DAILY 04/28/17 [Last Taken 04/27/17] Methocarbamol [Robaxin] 500 mg PO BID PRN 04/28/17 [Last Taken Unknown] Naproxen [Naprosyn] 500 mg PO BID PRN 04/28/17 [Last Taken Unknown] Omeprazole [Prilosec] 20 mg PO DAILYAC 04/28/17 [Last Taken 04/27/17] Prednisone [Prednisone 20Mg] 20 mg PO DAILY 04/28/17 [Last Taken 04/27/17] Pregabalin [Lyrica] 200 mg PO BID 04/28/17 [Last Taken 04/27/17] Risperidone [Risperdal] 0.5 mg PO QHS 04/28/17 [Last Taken 04/27/17] Sertraline HCl [Zoloft] 50 mg PO DAILY 04/28/17 [Last Taken 04/27/17] Sumatriptan Succinate [Imitrex] 100 mg PO ASDIR PRN 04/28/17 [Last Taken ] Trazodone HCl [Desyrel] 50 mg PO QHS 04/28/17 [Last Taken 04/27/17] Hydrochlorothiazide 50 mg PO DAILY 04/29/17 [Last Taken Unknown] Metformin HCl 1,000 mg PO QHS 04/29/17 [Last Taken Unknown] Acetaminophen [Tylenol Extra Strength] 500 mg PO Q4HR PRN #14 tablet 04/30/17 [ Last Taken Unknown] Metoprolol Tartrate [Lopressor] 25 mg PO BID #60 tab 04/30/17 [Last Taken Unknown] Ondansetron HCl [Zofran] 4 mg PO Q4HR PRN #14 tablet 04/30/17 [Last Taken Unknown] Discharge Plan - Discharge Instructions Activity at Discharge: Resume Usual Activities As Tolerated Diet at Discharge: Diabetic Diet Instructions: Abdominal Pain (ED) Additional Instructions: Patient to follow up with her PCP in 3-5 days. She is discharged home in stable condition with medications [facility]. She is to resume her DM medications at home as prescribed. Zofran 4mg Q4H PRN, Lopressor 25mg BID changed from 50mg due to low BP. Please advise patient to mention this change to PCP. Tylenol 500mg Q4H PRN. Quality Measures - Quality Measures Quality Measures: Documentation of Current Medications in Medical Record, Screening for High Blood Pressure and F/U Documented - Current Medications Quality Measure: Measure #130: Documentation of Current Medications Documentation of Current Medications: <Current Medications Documented/Reviewed> [[id number]] - Blood Pressure Screening Quality Measure: Screening for High Blood Pressure and Follow-Up Documented Does Patient Have Any of the Following: Active Dx of HTN Blood Pressure Classification: Pre-Hypertensive BP Reading Systolic Measurement: 133 Diastolic Measurement: 81 Screening for High Blood Pressure: Patient Exclusion, Hx of HTN [G9744] - Elder Abuse Suspicion Index EASI Reference Information: Saima CORTES, Christina C, Roseline D, Nandini Roman.Development and validation of a tool to assist physicians identification of elder abuse: The Elder Abuse Suspicion Index (EASI ). Journal of Elder Abuse and Neglect, 2008; 20 (3): 276-300.
== END 2017-04-30 14:09 | disposition home or self-care (01) ==
LOC: ER 17:01 → INTOOBSV 19:11 → MEDSURG 19:11
PROVIDERS: ADMIT Internal Medicine; ATTEND Internal Medicine
DX: K85.90 Acute pancreatitis without necrosis or infection, unspecified (principal); E11.9 Type 2 diabetes mellitus without complications; Z72.0 Tobacco use; I10 Essential (primary) hypertension; E78.00 Pure hypercholesterolemia, unspecified; Z79.84 Long term (current) use of oral hypoglycemic drugs; Z79.4 Long term (current) use of insulin; R25.1 Tremor, unspecified; F41.8 Other specified anxiety disorders
CPT/HCPCS: 36416; 74176; 80048; 80076; 81001; 82948; 83036; 83690; 85025; 96361; 96374; 96375; 99217; 99220; 99223; 99239; 99285; C9113; J1170; J1650; J2405; J3030; J7030

== ENCOUNTER 2017-08-08 17:58 | Emergency (ER) | payer MEDICAID ==
--- NOTE | 2017-08-08 18:50 | Emergency Department Record ---
History of Present Illness - General Chief complaint: Hypergylcemia Stated complaint: HIGH SUGAR LEVELS Time Seen by Provider: 08/08/17 18:43 Source: Patient Mode of Arrival: Ambulatory Limitations: No limitations - History of Present Illness Initial comments: 56 yo female presents to ED for evaluation of elevated blood sugar for the past 2 days. Patient denies any fevers, chills, or recent illness symptoms, denies any change in medications as well. Patient denies chest pain or difficulty in breathing symptoms as well. Patient called [facility] to determine how much sliding scale insulin she should take, and they recommended evaluation in the ED. Onset/Timin -: Days(s) Location: Generalized Consistency: Intermittent Associated Symptoms: Denies other symptoms - Giuliana Coma Scale Eye Response: (4) Open spontaneously Motor Response: (6) Obeys commands Verbal Response: (5) Oriented [place] Total: 15 - Related Data Previous Rx's Medication Instructions Recorded Acetaminophen [Tylenol Extra 500 mg PO Q4HR PRN #14 tablet 04/30/17 Strength] Metoprolol Tartrate [Lopressor] 25 mg PO BID #60 tab 04/30/17 Ondansetron HCl [Zofran] 4 mg PO Q4HR PRN #14 tablet 04/30/17 Allergies Allergy/AdvReac Type Severity Reaction Status Date / Time No Known Drug Allergies Allergy Verified 08/08/17 18:19 Travel Screening - Travel/Exposure Within Last 30 Days Have you traveled within the last 30 days?: No - Travel/Exposure Within Last Year Have you traveled outside the [place] in the last year?: No - Additonal Travel Details Have you been exposed to anyone with a communicable illness?: No - Travel Symptoms Symptom Screening: None Review of Systems Constitutional: Denies: Chills, Fever, Malaise, Night sweats Eyes: Denies: Eye discharge, Eye pain ENT: Denies: Congestion, Ear pain, Epistaxis Respiratory: Denies: Cough, Dyspnea, Hemoptysis Cardiovascular: Denies: Chest pain, Dyspnea on exertion Endocrine: Reports: Polydipsia, Polyuria. Denies: Fatigue, Heat or cold intolerance Gastrointestinal: Denies: Abdominal pain, Nausea, Vomiting Genitourinary: Denies: Incontinence, Retention Musculoskeletal: Denies: Arthralgia, Back pain Skin: Denies: Bruising, Change in color Neurological: Denies: Abnormal gait, Confusion, Headache, Numbness Psychiatric: Denies: Anxiety Hematological/Lymphatic: Denies: Anemia, Blood Clots Past Medical History - SOCIAL HISTORY Smoking Status: Current every day smoker Alcohol Use: None Drug Use: Heavy Drug Use Detail:: Marijuana - RESPIRATORY Hx Respiratory Disorders: No - CARDIOVASCULAR Hx Cardio Disorders: Yes Hx Hypertension: Yes Comment:: high cholesterol - NEURO Hx Neuro Disorders: No - GI Hx GI Disorders: Yes Hx Pancreatitis: Yes - Hx Genitourinary Disorders: No - ENDOCRINE Hx Endocrine Disorders: Yes Hx Diabetes: Yes (Type 2) Hx Thyroid Disease: No - MUSCULOSKELETAL Hx Musculoskeletal Disorders: Yes - PSYCH Hx Psych Problems: No Hx Anxiety: Yes Hx Depression: Yes - HEMATOLOGY/ONCOLOGY Hx Hematology/Oncology Disorders: No Family Medical History Any Significant Family History?: No Family Hx Comment (NOT TO BE USED IN PLACE OF ITEMS BELOW): grandpa-parkinsons Physical Exam - General General Appearance: Alert, Oriented x3, Cooperative, No acute distress Limitations: No limitations - Head Head exam: Atraumatic, Normocephalic, Normal inspection Head exam detail: negative: Abrasion, Contusion, Harper's sign, General tenderness, Hematoma, Laceration - ENT ENT exam: Mucous membranes dry Ear exam: negative: Auricular hematoma, Auricular trauma Nasal Exam: negative: Active bleeding, Discharge, Dried blood - Neck Neck exam: Normal inspection. negative: Meningismus, Tenderness - Respiratory Respiratory exam: Normal lung sounds bilaterally. negative: Respiratory distress, Rhonchi, Stridor, Wheezes - Cardiovascular Cardiovascular Exam: Regular rate, Normal rhythm, Normal heart sounds - GI/Abdominal GI/Abdominal exam: Soft. negative: Rebound, Rigid, Tenderness - Rectal Rectal exam: Deferred - exam: Deferred - Extremities Extremities exam: Normal inspection. negative: Calf tenderness, Pedal edema, Tenderness - Back Back exam: Denies: CVA tenderness (R), CVA tenderness (L) - Neurological Neurological exam: Alert, Oriented X3. negative: Motor sensory deficit - Psychiatric Psychiatric exam: Normal affect, Normal mood - Skin Skin exam: Normal color. negative: Abrasion Type of lesion: negative: abrasion Course Vital Signs 08/08/17 18:03 Temperature 98.2 F Pulse Rate 91 H Respiratory 16 Rate Blood Pressure 144/91 Pulse Ox 97 - Reevaluation(s) Reevaluation #1: 08/08/17 19:24 Laboratory studies were reviewed, Glucose 436, no evidence for DKA present with normal HCO3. Will administer 10 unites IV insulin and reassess. Reevaluation #2: 08/08/17 20:20 Patient's repeat Glucose 150, will have the patient eat peanut butter and crackers prior to discharge to avoid hypoglycemia symptoms upon arriving home tonight. Patient agrees with the plan of care as discussed, and the patient appears stable for discharge at this time. Medical Decision Making - Lab Data Result diagrams: 08/08/17 19:00 08/08/17 19:00 Lab Results 08/08/17 Range/Units 18:25 POC Glucose 432 H (70-110) mg/dL Disposition Disposition: Discharge Clinical Impression: Hyperglycemia due to type 2 diabetes mellitus Qualifiers: Diabetes mellitus nursing home insulin use: with nursing home use Qualified Code(s): E11.65 - Type 2 diabetes mellitus with hyperglycemia Disposition: Home, Self-Care Condition: (2) Stable Instructions: Diabetic Hyperglycemia (ED) Additional Instructions: Return to ED if your symptoms worsen or if you have any concerns. Follow-up with your family doctor in 3-5 days as directed. Forms: Patient Portal Access Time of Disposition: 20:22 Quality - Quality Measures Quality Measures: N/A - Blood Pressure Screening Does Patient Have Any of the Following: No Blood Pressure Classification: Hypertensive Reading Systolic Measurement: 144 Diastolic Measurement: 91 Screening for High Blood Pressure: < First Hypertensive BP, F/U Documented > [ [id number]] First Hypertensive Follow-up Interventions: Referral to alternative/primary care provider.
[2017-08-08] MEDS ORDERED: 0.9 % SODIUM CHLORIDE 1000ML 1,000 ML IV SCH (19:00)
[2017-08-08 19:04] LABS: BASO % 0.5 % (0-6); EOS % 1.5 % (0-6); GRAN % 61.6 % (47-80); HEMATOCRIT 42.5 % (35.0-47.0); HEMOGLOBIN 14.3 gm/dl (11.6-16.0); LYMPH % 29.2 % (16-45); MEAN CELL VOLUME 83.5 fl (81-97); MEAN CORPUSCULAR HEMOGLOBIN 28.1 pg (27-33); MEAN CORPUSCULAR HGB CONC 33.6 g/dl (32-36); MEAN PLATELET VOLUME 9.8 fl (7.4-10.4); MONO % 7.2 % (0-9); PLATELET COUNT 324 K/uL (130-400); RED BLOOD COUNT 5.09 M/uL (3.80-5.40); RED CELL DISTRIBUTION WIDTH 14.4 % (11.5-14.5)
[2017-08-08 19:13] LABS: BLOOD UREA NITROGEN 12 mg/dL (6-20); CREATININE 0.7 mg/dL (0.5-0.9); EST GLOMERULAR FILTRATION RATE > 60 mL/min
[2017-08-08 19:14] LABS: TOTAL PROTEIN 6.8 g/dL (6.6-8.7)
[2017-08-08 19:16] LABS: GLUCOSE,RANDOM 436 mg/dL (74-109)
[2017-08-08 19:19] LABS: ALB/GLOB RATIO 1.8 (1.1-1.8); ALBUMIN 4.4 g/dL (4.0-5.0); ALKALINE PHOSPHATASE 114 U/L (35-104); ALT/SGPT 13 U/L (<33); AST/SGOT 8 U/L (10.0-35.0)
[2017-08-08] MEDS ORDERED: HUMULIN R 100 UNIT/ML VIAL IV ONE (19:24)
[2017-08-08 19:32] LABS: URINE APPEARANCE CLEAR; URINE BILIRUBIN NEGATIVE (NEGATIVE); URINE BLOOD NEGATIVE (NEGATIVE); URINE COLOR YELLOW; URINE KETONE NEGATIVE (NEGATIVE); URINE LEUKOCYTE ESTERASE NEGATIVE (NEGATIVE); URINE NITRITE NEGATIVE (NEGATIVE); URINE PROTEIN NEGATIVE (NEGATIVE); URINE UROBILINOGEN 0.2 E.U./dL (0.20 - 1.00)
[2017-08-08 19:33] LABS: URINE GLUCOSE (UA) >=1000 mg/dL (NEGATIVE)
== END 2017-08-08 20:50 | disposition home or self-care (01) ==
LOC: ER 17:58
DX: E11.65 Type 2 diabetes mellitus with hyperglycemia (principal); I10 Essential (primary) hypertension; F17.210 Nicotine dependence, cigarettes, uncomplicated; Z79.4 Long term (current) use of insulin
CPT/HCPCS: 36416; 80053; 81003; 82948; 85025; 96374; 99284; J7030